=== PATIENT | male | born 1970 | race Caucasian/White ===

== ENCOUNTER 2016-12-08 14:34 | Emergency (ER) | payer MEDICAID ==
[~2016-12-08] VITALS: Ht 175.3 cm; Wt 74.6 kg
[2016-12-08] MEDS ORDERED: LORazepam 1MG TABLET PO ONE (17:30)
[2016-12-08] MEDS ORDERED: LORazepam 1MG TABLET ONE (17:49)
[2016-12-08 18:06] LABS: BLOOD UREA NITROGEN 7 mg/dL (7-18)
[2016-12-08 18:09] LABS: ASPARTATE AMINO TRANSFERASE 93 U/L (15-37)
[2016-12-08 19:12] VITALS: BP 112/83
== END 2016-12-08 19:14 | disposition home or self-care (01) ==
LOC: ED 19:08
DX: R06.00 Dyspnea, unspecified (principal); K59.00 Constipation, unspecified; Z87.891 Personal history of nicotine dependence; Z79.899 Other long term (current) drug therapy
CPT/HCPCS: 36415; 71020; 74022; 80053; 85025